=== PATIENT | male | born 1980 | race Caucasian/White ===

== ENCOUNTER 2024-04-10 22:20 | Emergency (ER) | payer OTHER ==
[2024-04-10] MEDS ORDERED: HYDROCODONE/APAP 7.5/325 MG TAB ONE (23:30)
[2024-04-10] MEDS ORDERED: IBUPROFEN 400 MG TAB ONE (23:30)
--- NOTE | 2024-04-11 00:36 | EDPHYS ---
Physician Documentation [facility] Name: Dustin Castro Age: 43 yrs Sex: Male : 1980 Arrival Date: 04/10/2024 Time: 22:20 Bed 20 Private MD: ED Physician Adam Villalpando HPI: 04/10 23:30 This 43 yrs old Male presents to ER via Wheelchair with complaints of Ankle Swelling, cp Ankle Injury. 23:30 The patient presents with pain, that is acute. The complaints affect the right ankle. cp 23:30 Onset: The symptoms/episode began/occurred today. Context: The patient can partially cp bear weight on the affected extremity. the patient is able to ambulate, with moderate difficulty, must have assistance, misstep on boat dock. Associated signs and symptoms: The patient has no apparent associated signs or symptoms. Historical: - Allergies: 22:40 No Known Allergies; al5 - PMHx: 22:40 None; al5 - PSHx: 22:40 back surgery; al5 - Immunization history:: Adult Immunizations up to date. - Infectious Disease History:: Denies. - Social history:: Smoking status: Patient denies any tobacco usage or history of. ROS: 23:33 MS/extremity: Positive for decreased range of motion, pain, swelling, tenderness, of cp the right foot and right ankle, 23:33 Constitutional: HX per HPI cp 23:33 Constitutional: Negative for body aches, chills, fever, 23:33 Neuro: Positive for numbness, of the right lower leg and right ankle and right foot, 23:33 All other systems are negative, Exam: 23:35 Constitutional: The patient appears in no acute distress, alert, awake, non-toxic, well cp developed, well nourished, uncomfortable, 23:35 Head/Face: Normocephalic, atraumatic. cp 23:35 Cardiovascular: Rate: normal, Pulses: Pulses are 2+ in right dorsalis pedis artery. 23:35 Respiratory: the patient does not display signs of respiratory distress, Respirations: normal, 23:35 Abdomen/GI: Inspection: abdomen appears normal, 23:35 Musculoskeletal/extremity: Extremities: noted in the right ankle and right foot: pain and tenderness noted lateral ankle and lateral foot, numbness to ankle and foot from previous injury, pain with passive ROM right ankle, Achilles tendon palpated and intact. Vital Signs: 22:34 BP 158 / 81; Pulse 94; Resp 18; Temp 98.2; Pulse Ox 97% on R/A; Weight 88.9 kg; Height al5 6 ft. 0 in. ; Pain 10/16; 04/11 01:35 BP 134 / 76; Pulse 88; Resp 18; Temp 98.2; Pulse Ox 97% ; cp4 04/10 22:34 Body Mass Index 26.58 (88.90 kg, 182.88 cm) al5 04/10 22:34 Pain Scale: Adult al5 Procedures: 01:00 Splinting: Splint applied to right foot and right ankle using Orthoglass splint, cp applied by nurse. Examined by me, post splint application: neurovascular intact, Patient tolerated well. MDM: 04/10 22:42 Patient medically screened. cp 04/11 00:00 Differential diagnosis: fracture, sprain, dislocation. cp 00:35 Data reviewed: vital signs, nurses notes, radiologic studies, plain films, and as a cp result, I will discharge patient. 00:35 I considered the following discharge prescriptions or medication management in the emergency department Medications were administered in the Emergency Department. See MAR. Counseling: I had a detailed discussion with the patient and/or guardian regarding the historical points, exam findings, and any diagnostic results supporting the discharge/admit diagnosis, radiology results, the need for outpatient follow up, a orthopedic surgeon, to return to the emergency department if symptoms worsen or persist or if there are any questions or concerns that arise at home. Response to treatment: the patient's symptoms have markedly improved after treatment, and as a result, I will discharge patient. 04/10 23:07 Order name: XRAY Ankle RIGHT 3 view cp 04/10 23:07 Order name: Ice pack; Complete Time: 23:13 cp 04/11 00:33 Order name: Crutches; Complete Time: 01:29 cp 04/11 00:58 Order name: Splint: short leg posterior and stirrup; Complete Time: 01:28 cp Administered Medications: 04/10 23:37 Not Given (Patient Refused): mg PO once cp4 23:37 Not Given (Patient Refused): hydrocodone-acetaminophen(7.5 mg-325 mg) 1 tabs PO once; cp4 RASS on ADMIN: Combtv4, Very Agttd3, Agttd2, Rstlss1, AlertClm0, Drwsy-1, Lt Sdtn-2, Mod Sdtn-3, Dp Sdtn-4, UnArsble-5 Disposition Summary: 04/11/24 00:35 Discharge Ordered Notes: Location: Home cp Problem: new cp Symptoms: have improved cp Condition: Stable cp Diagnosis - Pain in right ankle and joints of right foot cp Followup: cp - With: Marcus Cedillo MD - When: 1 week - Reason: Recheck today's complaints Discharge Instructions: - Discharge Summary Sheet cp - Elastic Bandage and RICE Therapy cp - Ankle Pain cp Forms: - Medication Reconciliation Form cp - Antibiotic Education cp - Prescription Opioid Use cp - Patient Portal Instructions cp - Leadership Thank You Letter cp Prescriptions: - Ibuprofen 800 mg Oral Tablet - take 1 tablet ORAL route every 8 hours As needed take with food; 30 tablet; cp Refills: 0, Product Selection Permitted Addendum: 04/12/2024 04:15 Co-signature as Attending Physician, Adam Villalpando MD I agree with the assessment and c miramontes plan of care. Signatures: Dispatcher [employer] Adam Amador MD MD cha Page, Corey, PA PA cp Gayle Guerra, RN RN alRachel Rizvi cp4 Corrections: (The following items were deleted from the chart) 04/11 00:57 00:33 Splint - Ankle: Aircast ordered. cp cp
--- NOTE | 2024-04-11 00:36 | ER ---
Nurse's Notes [facility] Name: Dustin Castro Age: 43 yrs Sex: Male : 1980 Arrival Date: 04/10/2024 Time: 22:20 Bed 20 Private MD: Diagnosis: Pain in right ankle and joints of right foot Presentation: 04/10 22:34 Chief complaint: Patient states[place]. Jumped al5 from the boat to the dock, then went to step down on the ramp and heard a snap in his R ankle. C/o R ankle pain and swelling along with swelling in his R foot. Happened about 2130 tonight. Coronavirus screen: At this time, the client does not indicate any symptoms associated with coronavirus-19. Ebola Screen: No symptoms or risks identified at this time. Initial Sepsis Screen: Does the patient meet any 2 criteria? No. Patient's initial sepsis screen is negative. Does the patient have a suspected source of infection? No. Patient's initial sepsis screen is negative. Risk Assessment: Do you want to hurt yourself or someone else? Patient reports no desire to harm self or others. Onset of symptoms was April 10, 2024. 22:34 Method Of Arrival: Wheelchair al5 22:34 Acuity: KRISSY 4 al5 Triage Assessment: 22:41 General: Appears in no apparent distress. Behavior is calm, cooperative. Pain: al5 Complains of pain in right ankle Pain currently is 1 out of 10 on a pain scale. Is continuous. EENT: No deficits noted. No signs and/or symptoms were reported regarding the EENT system. Neuro: No deficits noted. Level of Consciousness is awake, alert, obeys commands, Oriented to person, place, time, situation, Speech is normal, Facial symmetry appears normal. Cardiovascular: No deficits noted. Capillary refill < 3 seconds Patient's skin is warm and dry. Respiratory: No deficits noted. Airway is patent Trachea midline Respiratory effort is even, unlabored, Respiratory pattern is regular, symmetrical. GI: No deficits noted. No signs and/or symptoms were reported involving the gastrointestinal system. : No deficits noted. No signs and/or symptoms were reported regarding the genitourinary system. Derm: Skin is intact, Skin is pink, warm \T\ dry. normal, Skin temperature is warm. Musculoskeletal: Swelling present in right foot and right ankle. Historical: - Allergies: 22:40 No Known Allergies; al5 - PMHx: 22:40 None; al5 - PSHx: 22:40 back surgery; al5 - Immunization history:: Adult Immunizations up to date. - Infectious Disease History:: Denies. - Social history:: Smoking status: Patient denies any tobacco usage or history of. Screenin:03 [facility] ED Fall Risk Assessment (Adult) History of falling in the last 3 months, cp4 including since admission No falls in past 3 months (0 pts) Confusion or Disorientation No (0 pts) Intoxicated or Sedated No (0 pts) Impaired Gait No (0 pts) Mobility Assist Device Used No (0 pt) Altered Elimination No (0 pt) Score/Fall Risk Level 0 - 2 = Low Risk Oriented to surroundings, Maintained a safe environment, Assessed \T\ reinforced patient's understanding of fall precautions, Hourly rounding (assess needs \T\ fall precautionary measures) done. Abuse screen: Denies threats or abuse. Nutritional screening: No deficits noted. Tuberculosis screening: No symptoms or risk factors identified. Assessment: 23:02 General: Appears uncomfortable, Behavior is calm, cooperative, appropriate for age. cp4 Pain: Complains of pain in right foot and right leg and right ankle. Musculoskeletal: Reports pain in right foot and right leg and right ankle. Vital Signs: 22:34 BP 158 / 81; Pulse 94; Resp 18; Temp 98.2; Pulse Ox 97% on R/A; Weight 88.9 kg; Height al5 6 ft. 0 in. ; Pain 10/16; 04/11 01:35 BP 134 / 76; Pulse 88; Resp 18; Temp 98.2; Pulse Ox 97% ; cp4 04/10 22:34 Body Mass Index 26.58 (88.90 kg, 182.88 cm) al5 04/10 22:34 Pain Scale: Adult al5 ED Course: 04/10 22:29 Patient arrived in ED. gm2 22:38 Rachel Dueñas is Primary Nurse. cp4 22:40 Triage completed. al5 22:42 Adam Nunez PA is PHCP. cp 22:42 Adam Villalpando MD is Attending Physician. cp 22:42 Arm band placed on right wrist. Patient placed in an exam room, on a stretcher. al5 23:03 Bed in low position. Call light in reach. Side rails up X 1. cp4 04/11 00:13 XRAY Ankle RIGHT 3 view In Process Unspecified. EDMS 00:34 Marcus Cedillo MD is Referral Physician. cp 01:29 Crutch training done. Orthoglass splint: Posterior short lleg splint applied on right cp4 leg. stirrup splint applied on right leg. 01:30 Provided Education on: stress fracture. cp4 01:30 No provider procedures requiring assistance completed. Patient did not have IV access cp4 during this emergency room visit. Administered Medications: 04/10 23:37 Not Given (Patient Refused): [id number] mg PO once cp4 23:37 Not Given (Patient Refused): hydrocodone-acetaminophen(7.5 mg-325 mg) 1 tabs PO once; cp4 RASS on ADMIN: Combtv4, Very Agttd3, Agttd2, Rstlss1, AlertClm0, Drwsy-1, Lt Sdtn-2, Mod Sdtn-3, Dp Sdtn-4, UnArsble-5 Medication: 23:03 VIS not applicable for this client. cp4 Outcome: 04/11 00:35 Discharge ordered by . cp 01:30 Discharged to home ambulatory, cp4 01:30 Condition: stable 01:30 Discharge instructions given to patient, Instructed on discharge instructions, follow up and referral plans. medication usage, Demonstrated understanding of instructions, follow-up care, medications, Prescriptions given X 1, 01:36 Patient left the ED. cp4 Signatures: Dispatcher [employer] EDIN Adam Nunez PA PA cp Potter, Christina cp4 Araseli Scott 2 Gayle Guerra, RN RN al5
[2024-04-11 02:02] VITALS: BP 134/76; TEMP 98.2; O2SAT 97
--- NOTE | 2024-04-12 17:38 | RAD REPORT ---
EXAM DESCRIPTION: Ankle Right 3 View CLINICAL HISTORY: PAIN COMPARISON: None TECHNIQUE: 3 views of the right ankle. FINDINGS: Normal mineralization. Subtle lucency along the posterior malleolus on lateral view. Joint spaces are maintained. IMPRESSION: Subtle lucency along the posterior malleolus on lateral view, could represent nondisplac ed fracture. Electronically signed by: Juancho Le MD 04/11/2024 12:27 AM CDT RP Z9 Due to temporary technical issues with the PACS/Fluency reporting system, reports are being signed by the in house radiologists without review as a courtesy to insure prompt reporting. The interpreting radiologist is fully responsible for the content of the report.
== END 2024-04-11 01:36 | disposition home or self-care (01) ==
LOC: ER 22:20
PROC: 2W3QX1Z Immobilization of Right Lower Leg using Splint (ICD-10-PCS; principal; 2024-04-11)
DX: M25.571 Pain in right ankle and joints of right foot (principal)
CPT/HCPCS: 99283